=== PATIENT | female | born 1955 | race Caucasian/White ===

== ENCOUNTER 2017-10-30 10:51 | Emergency (ER) | payer OTHER ==
[~2017-10-30] VITALS: Ht 170.2 cm; Wt 54.4 kg
[~2017-10-30 10:51] MED LIST: BUPR150ER; POTCHL10ER
[2017-10-30 12:06] LABS: BASOPHILS ABSOLUTE AUTO 0.07 K/mm3 (0.00-0.23); BASOPHILS PERCENT AUTO 1 % (0-2); EOSINOPHILS PERCENT AUTO 0 % (0-6); Hematocrit 40.4 % (33.0-51.0); Hemoglobin 13.5 g/dL (11.5-16.0); IMMATURE GRAN ABSOLUTE AUTO 0.06 K/mm3 (0.00-0.10); IMMATURE GRAN PERCENT AUTO 1 % (0-1); LYMPHOCYTES ABSOLUTE AUTO 0.85 K/mm3 (0.84-5.20); LYMPHOCYTES PERCENT AUTO 7 % (21-46); MONOCYTES ABSOLUTE AUTO 0.98 K/mm3 (0.16-1.47); MONOCYTES PERCENT AUTO 8 % (4-13); Mean Corpuscular HGB 28.4 pg (26.0-34.0); Mean Corpuscular HGB Conc 33.4 g/dL (31.5-36.5); Mean Corpuscular Volume 85 fL (80-100); Mean Platelet Volume 9.1 fL (9.1-12.4); NEUTROPHILS ABSOLUTE AUTO 9.94 K/mm3 (1.96-9.15); NEUTROPHILS PERCENT AUTO 84 % (41-73); Platelet Count 165 K/mm3 (150-400); RDW Coefficient Variation 14.6 % (11.7-14.2); RDW Standard Deviation 45.3 fL (35.1-46.3); Red Blood Cell Count 4.75 M/mm3 (3.80-5.20)
[2017-10-30] MEDS ORDERED: MILK THISTLE140 MG PO (12:10)
[2017-10-30 12:23] LABS: Alanine Aminotransfer (ALT/SGP 21 U/L (12-78); Albumin, Blood 3.5 g/dL (3.4-5.0); Albumin/Globulin Ratio 0.7 (0.8-1.8); Alk Phos 205 U/L (50-136); Anion Gap 9 mmol/L (6-16); Aspartate Aminotrans (AST/SGOT 36 U/L (12-37); Bilirubin, Total 1.2 mg/dL (0.1-1.0); Blood Urea Nitrogen 10 mg/dL (8-24); Bun/Creatinine Ratio 20.5 (12.0-20.0); CO2, Blood 19 mmol/L (21-32); Calcium, Blood 9.2 mg/dL (8.5-10.1); Chloride, Blood 99 mmol/L (98-108); Creatinine, Blood 0.49 mg/dL (0.40-1.00); Globulin, Blood 4.9 g/dL (2.2-4.0); Glomerular Filtration Rate >60 (60-); Glucose, Blood 87 mg/dL (70-99); Potassium, Blood 4.3 mmol/L (3.5-5.5); Sodium, Blood 127 mmol/L (136-145); Total Protein, Blood 8.4 g/dL (6.4-8.2)
[2017-10-30 12:27] LABS: International Normalized Ratio 1.21; Prothrombin Time Results 12.7 Sec (9.7-11.5)
[2017-10-30 12:53] LABS: Influenza A Negative (NEGATIVE); Influenza B Negative (NEGATIVE)
[2017-10-30 14:18] LABS: Source, Urine Clean Catch
[2017-10-30 14:24] LABS: Appearance, Urine Hazy (Clear); Bilirubin, Urine Neg (Neg); Blood, Urine 4+ (Neg); Color, Urine Yellow (P-Yellow); Glucose Qualitative, Urine Neg (Neg); Ketones, Urine 1+ (Neg); Leukocyte Esterase, Urine 1+ (Neg); Nitrite, Urine Pos (Neg); Protein, Urine 2+ (Neg); Urobilinogen, Urine NORM (Normal)
[2017-10-30] MEDS ORDERED: LEVO750 PO (14:25)
[2017-10-30 14:32] LABS: Bacteria Many /hpf; Squamous Epithelial Cells Few /hpf (Few)
[2017-10-31] MEDS ORDERED: Prednisone50 MG PO (19:18)
== END 2017-10-30 14:51 | disposition home or self-care (01) ==
LOC: ER 10:51
PROVIDERS: Nurse Practitioner Family
DX: J18.9 Pneumonia, unspecified organism (principal); F32.9 Major depressive disorder, single episode, unspecified; F17.200 Nicotine dependence, unspecified, uncomplicated; Z79.899 Other long term (current) drug therapy
CPT/HCPCS: 36415; 71046; 80053; 81001; 85025; 85610; 87077; 87086; 87186; 87804; 93005; 93010; 96361; 96374; 99283; J1885; J7030

== ENCOUNTER 2017-10-31 17:50 | Emergency (ER) | payer OTHER ==
[~2017-10-31] VITALS: Ht 172.7 cm; Wt 54.4 kg
[~2017-10-31 17:50] MED LIST changes: +LEVO750 PO; +MILK THISTLE140 MG PO
[2017-10-31 18:35] LABS: BASOPHILS ABSOLUTE AUTO 0.03 K/mm3 (0.00-0.23); BASOPHILS PERCENT AUTO 0 % (0-2); EOSINOPHILS ABSOLUTE AUTO 0.12 K/mm3 (0.00-0.68); EOSINOPHILS PERCENT AUTO 1 % (0-6); Hematocrit 37.1 % (33.0-51.0); Hemoglobin 12.5 g/dL (11.5-16.0); IMMATURE GRAN ABSOLUTE AUTO 0.07 K/mm3 (0.00-0.10); IMMATURE GRAN PERCENT AUTO 1 % (0-1); LYMPHOCYTES ABSOLUTE AUTO 1.27 K/mm3 (0.84-5.20); LYMPHOCYTES PERCENT AUTO 12 % (21-46); MONOCYTES PERCENT AUTO 7 % (4-13); Mean Corpuscular HGB Conc 33.7 g/dL (31.5-36.5); Mean Corpuscular Volume 83 fL (80-100); Mean Platelet Volume 9.4 fL (9.1-12.4); NEUTROPHILS ABSOLUTE AUTO 8.53 K/mm3 (1.96-9.15); NEUTROPHILS PERCENT AUTO 80 % (41-73); Platelet Count 138 K/mm3 (150-400); RDW Coefficient Variation 14.3 % (11.7-14.2); RDW Standard Deviation 43.2 fL (35.1-46.3); Red Blood Cell Count 4.47 M/mm3 (3.80-5.20); White Blood Cell Count 10.72 K/mm3 (4.00-11.30)
[2017-10-31 18:51] LABS: Alanine Aminotransfer (ALT/SGP 27 U/L (12-78); Albumin, Blood 3.3 g/dL (3.4-5.0); Albumin/Globulin Ratio 0.8 (0.8-1.8); Alk Phos 240 U/L (50-136); Anion Gap 9 mmol/L (6-16); Aspartate Aminotrans (AST/SGOT 55 U/L (12-37); Bilirubin, Total 0.8 mg/dL (0.1-1.0); Blood Urea Nitrogen 12 mg/dL (8-24); Bun/Creatinine Ratio 27.5 (12.0-20.0); CO2, Blood 21 mmol/L (21-32); Chloride, Blood 97 mmol/L (98-108); Creatinine, Blood 0.44 mg/dL (0.40-1.00); Globulin, Blood 4.2 g/dL (2.2-4.0); Glomerular Filtration Rate >60 (60-); Glucose, Blood 82 mg/dL (70-99); Potassium, Blood 3.7 mmol/L (3.5-5.5); Sodium, Blood 127 mmol/L (136-145); Total Protein, Blood 7.5 g/dL (6.4-8.2); Troponin I <0.015 ng/mL (0.000-0.040)
[2017-10-31] MEDS ORDERED: Prednisone50 MG PO (19:18)
== END 2017-10-31 20:17 | disposition home or self-care (01) ==
LOC: ER 17:50
PROVIDERS: Emergency Medicine
DX: J44.0 Chronic obstructive pulmonary disease with (acute) lower respiratory infection (principal); J18.9 Pneumonia, unspecified organism; E86.0 Dehydration; Z79.899 Other long term (current) drug therapy; Z79.52 Long term (current) use of systemic steroids; Z79.2 Long term (current) use of antibiotics; F17.200 Nicotine dependence, unspecified, uncomplicated
CPT/HCPCS: 71045; 80053; 83880; 84484; 85025; 93005; 93010; 96374; 99283; J1100

== ENCOUNTER 2017-11-29 14:29 | Day surgery (SDC) | payer OTHER ==
[~2017-11-29 14:29] MED LIST changes: +Prednisone50 MG PO
== END 2017-11-29 22:45 | disposition home or self-care (01) ==
LOC: US 14:29
DX: K70.31 Alcoholic cirrhosis of liver with ascites (principal)
CPT/HCPCS: 76705

== ENCOUNTER 2018-01-08 06:25 | Day surgery (SDC) | payer OTHER ==
[~2018-01-08] VITALS: Ht 170.2 cm; Wt 56.2 kg
== END 2018-01-08 08:42 | disposition home or self-care (01) ==
LOC: ORSCSDS 06:25
PROVIDERS: Internal Medicine Gastroenterology
PROC: 0DB68ZX Excision of Stomach, Via Natural or Artificial Opening Endoscopic, Diagnostic (ICD-10-PCS; principal; 2018-01-08 07:45)
DX: K74.60 Unspecified cirrhosis of liver (principal); R14.0 Abdominal distension (gaseous); R18.8 Other ascites; K31.9 Disease of stomach and duodenum, unspecified; K29.70 Gastritis, unspecified, without bleeding; F17.210 Nicotine dependence, cigarettes, uncomplicated; Z79.899 Other long term (current) drug therapy
CPT/HCPCS: 88305; 88342; J0330; J1980; J2405; J7120

== ENCOUNTER → 2019-05-26 | Outpatient (CLI) | payer OTHER | END | disposition home or self-care (01) | LOC: LAB SHORT 07:37 → PLD 07:37 | DX: L30.8 Other specified dermatitis (principal); L98.9 Disorder of the skin and subcutaneous tissue, unspecified | CPT/HCPCS: 88305; 88312; 88313 ==

== ENCOUNTER 2019-09-09 11:35 | Day surgery (SDC) | payer OTHER ==
[2019-09-09] MEDS ORDERED: THERA1 EACH (12:10)
== END 2019-09-09 13:35 | disposition home or self-care (01) ==
LOC: ORSCSDS 11:35
PROVIDERS: Internal Medicine Gastroenterology
PROC: 0DBK8ZX Excision of Ascending Colon, Via Natural or Artificial Opening Endoscopic, Diagnostic (ICD-10-PCS; principal; 2019-09-09 13:00)
DX: Z12.11 Encounter for screening for malignant neoplasm of colon (principal); K57.30 Diverticulosis of large intestine without perforation or abscess without bleeding; J43.9 Emphysema, unspecified; K70.31 Alcoholic cirrhosis of liver with ascites; F17.210 Nicotine dependence, cigarettes, uncomplicated; Z79.899 Other long term (current) drug therapy
CPT/HCPCS: 88305; J2704; J7120

== ENCOUNTER → 2019-09-16 | Outpatient (CLI) | payer OTHER ==
[~2019-09-16] MED LIST changes: +THERA1 EACH
== END | disposition home or self-care (01) ==
LOC: PLD 12:38 → LAB SHORT 12:38
DX: L30.8 Other specified dermatitis (principal)
CPT/HCPCS: 88305; 88312; 88313

== ENCOUNTER → 2019-12-12 | Outpatient (CLI) | payer OTHER ==
[2019-12-17 08:10] LABS: COTININE <10.0 ng/mL (.); NICOTINE <10.0 ng/mL (.)
== END | disposition home or self-care (01) ==
LOC: LAB 11:35 → LAB SHORT 11:35
PROVIDERS: Ophthalmology
DX: H25.11 Age-related nuclear cataract, right eye (principal)
CPT/HCPCS: G0480

== ENCOUNTER → 2020-08-10 | Outpatient (CLI) | payer OTHER ==
[2020-08-10 09:41] LABS: Source, Urine Clean Catch
[2020-08-10 12:17] LABS: Appearance, Urine Clear (Clear); Bilirubin, Urine Neg (Neg); Blood, Urine 1+ (Neg); Color, Urine Yellow (P-Yellow); Glucose Qualitative, Urine Neg (Neg); Ketones, Urine Neg (Neg); Leukocyte Esterase, Urine Neg (Neg); Nitrite, Urine Neg (Neg); Protein, Urine Neg (Neg); Urobilinogen, Urine NORM (Normal)
[2020-08-10 12:41] LABS: White Blood Cells, Urine Not Seen /hpf (0-5)
[2020-08-10 12:42] LABS: Bacteria Rare /hpf; Red Blood Cells, Urine 0-2 /hpf (0-2); Squamous Epithelial Cells Not Seen /hpf (Few)
== END | disposition home or self-care (01) ==
LOC: LAB UCHC 09:36 → LAB SHORT 09:36
PROVIDERS: Internal Medicine
DX: E87.1 Hypo-osmolality and hyponatremia (principal)
CPT/HCPCS: 81001

== ENCOUNTER 2021-04-14 09:38 | Day surgery (SDC) | payer OTHER ==
[~2021-04-14] VITALS: Ht 170.2 cm; Wt 52.4 kg
[2021-04-14] MEDS ORDERED: Lisinopril2.5 MG (09:52)
--- NOTE | 2021-04-14 09:59 | NUR ---
04/14/21 0959 Rosalind Schmid 1 TRY RIGHT HAND VALVE
== END 2021-04-14 11:24 | disposition home or self-care (01) ==
LOC: ORSCSDS 09:38
PROVIDERS: Student in an Organized Health Care Education/Training Program
PROC: 0DB68ZX Excision of Stomach, Via Natural or Artificial Opening Endoscopic, Diagnostic (ICD-10-PCS; principal; 2021-04-14 11:00)
PROC: 0DB98ZX Excision of Duodenum, Via Natural or Artificial Opening Endoscopic, Diagnostic (ICD-10-PCS; principal; 2021-04-14 11:00)
DX: K74.60 Unspecified cirrhosis of liver (principal); Z13.810 Encounter for screening for upper gastrointestinal disorder; K31.7 Polyp of stomach and duodenum; I10 Essential (primary) hypertension; E78.5 Hyperlipidemia, unspecified; F17.210 Nicotine dependence, cigarettes, uncomplicated; Z79.899 Other long term (current) drug therapy
CPT/HCPCS: 88305; J2704; J7120

== ENCOUNTER 2022-02-20 18:31 | Inpatient (IN) | payer MEDICARE, OTHER ==
[~2022-02-20] VITALS: Ht 170.2 cm; Wt 52.7 kg
[~2022-02-20 18:31] MED LIST changes: +Lisinopril2.5 MG
[2022-02-20] MEDS ORDERED: AMLODIPINE BESYL5 MG PO (19:23)
[2022-02-20] MEDS ORDERED: Zestril30 MG PO (19:23)
[2022-02-20 21:54] LABS: Base Excess Venous 3.9 mmol/L; Bicarbonate Venous 25.9 mmol/L (24.0-30.0); PCO2 Venous 47.4 mmHg (38-42); pH Blood Venous 7.39 (7.34-7.37)
[2022-02-21 00:05] LABS: Hematocrit 38.9 % (33.0-51.0); Hemoglobin 13.9 g/dL (11.5-16.0); Mean Corpuscular HGB 31.8 pg (26.0-34.0); Mean Corpuscular HGB Conc 35.7 g/dL (31.5-36.5); Mean Corpuscular Volume 89 fL (80-100); Mean Platelet Volume 9.3 fL (9.1-12.4); Platelet Count 167 K/mm3 (150-400); RDW Coefficient Variation 12.3 % (11.7-14.2); RDW Standard Deviation 40.8 fL (35.1-46.3); Red Blood Cell Count 4.37 M/mm3 (3.80-5.20); White Blood Cell Count 10.35 K/mm3 (4.00-11.30)
[2022-02-21 00:43] LABS: Albumin/Globulin Ratio 0.8 (0.8-1.8); Bilirubin, Total 0.7 mg/dL (0.1-1.0); Bun/Creatinine Ratio 28.9 (12.0-20.0); Calcium, Blood 8.7 mg/dL (8.5-10.1); Creatinine, Blood 0.42 mg/dL (0.40-1.00); Potassium, Blood 3.3 mmol/L (3.5-5.5)
--- NOTE | 2022-02-21 04:43 | NUR ---
SUMMARY PT ARRIVED TO ROOM IN NO DISTRESS. PT ON 2 LPM O2 VIA NC. PT DOES GET SOB WITH EXTERTION. PT HAD NO OTHER ISSUES NOTED. PT HAS BEEN SLEEPING WELL. PT CURRENTLY SLEEPING AND BREATHING EASY. CALL LIGHT IN REACH.
[2022-02-21 08:17] LABS: BASOPHILS ABSOLUTE AUTO 0.02 K/mm3 (0.00-0.23); BASOPHILS PERCENT AUTO 0 % (0-2); EOSINOPHILS PERCENT AUTO 0 % (0-6); Hematocrit 39.2 % (33.0-51.0); Hemoglobin 13.8 g/dL (11.5-16.0); IMMATURE GRAN ABSOLUTE AUTO 0.15 K/mm3 (0.00-0.10); IMMATURE GRAN PERCENT AUTO 2 % (0-1); LYMPHOCYTES ABSOLUTE AUTO 0.77 K/mm3 (0.84-5.20); LYMPHOCYTES PERCENT AUTO 8 % (21-46); MONOCYTES ABSOLUTE AUTO 0.47 K/mm3 (0.16-1.47); MONOCYTES PERCENT AUTO 5 % (4-13); Mean Corpuscular HGB 31.7 pg (26.0-34.0); Mean Corpuscular HGB Conc 35.2 g/dL (31.5-36.5); Mean Corpuscular Volume 90 fL (80-100); Mean Platelet Volume 9.6 fL (9.1-12.4); NEUTROPHILS ABSOLUTE AUTO 8.44 K/mm3 (1.96-9.15); NEUTROPHILS PERCENT AUTO 86 % (41-73); Platelet Count 193 K/mm3 (150-400); RDW Coefficient Variation 12.5 % (11.7-14.2); RDW Standard Deviation 41.4 fL (35.1-46.3); Red Blood Cell Count 4.35 M/mm3 (3.80-5.20); White Blood Cell Count 9.85 K/mm3 (4.00-11.30)
[2022-02-21 08:31] LABS: Albumin, Blood 2.8 g/dL (3.4-5.0); Anion Gap 7 mmol/L (6-16); Blood Urea Nitrogen 10 mg/dL (8-24); Bun/Creatinine Ratio 24.9 (12.0-20.0); CO2, Blood 26 mmol/L (21-32); Chloride, Blood 98 mmol/L (98-108); Glomerular Filtration Rate 110 (60-); Glucose, Blood 200 mg/dL (70-99); Magnesium, Blood 2.1 mg/dL (1.6-2.4); Phosphorus, Blood 3.3 mg/dL (2.5-4.9); Sodium, Blood 131 mmol/L (136-145)
--- NOTE | 2022-02-21 17:58 | NUR ---
SHIFT SUMMARY; NO ACUTE CHANGES IN CONDITION ARE NOTED FOR THIS PATIENT TODAY. SHE REMAINS ON BEDREST UNLESS AMBULATING TO AND FROM THE BATHROOM. SH USES HER CALL LIGHT APPROPRATELY TO MAKE HER NEEDS KNOWN. PATIENT HAS A PLEASANT AFFECT THROUGHOUT THE DAY. HE VITAL SIGNS ARE WITHIN NORMAL LIMITS.\ PATIENT IS ON DAY 2 OF HER REMDISVIR IV. SHE REMAINS ON 2 LITERS BY NASAL CANNULA TO KEEP SATS ABOVE 92%
--- NOTE | 2022-02-22 04:01 | NUR ---
SHIFT SUMMARY A/OX4, IND IN ROOM. CALLS APPROPRIATELY. DENIES PAIN. CURRENTLY ON 2L 02 VIA LA. DYSPNEA ON EXERTION. CIWA PER PROTOCOL. VSS, NO ACUTE CHANGES AT THIS TIME. BED IN LOWEST POSITION WITH CALL LIGHT IN REACH. WILL CONTINUE TO MONITOR AND REPORT TO ONCOMING RN.
[2022-02-22 05:17] LABS: BASOPHILS ABSOLUTE AUTO 0.05 K/mm3 (0.00-0.23); BASOPHILS PERCENT AUTO 0 % (0-2); EOSINOPHILS ABSOLUTE AUTO 0.04 K/mm3 (0.00-0.68); EOSINOPHILS PERCENT AUTO 0 % (0-6); Hematocrit 40.3 % (33.0-51.0); Hemoglobin 14.2 g/dL (11.5-16.0); IMMATURE GRAN PERCENT AUTO 1 % (0-1); LYMPHOCYTES ABSOLUTE AUTO 1.15 K/mm3 (0.84-5.20); LYMPHOCYTES PERCENT AUTO 8 % (21-46); MONOCYTES ABSOLUTE AUTO 0.93 K/mm3 (0.16-1.47); MONOCYTES PERCENT AUTO 7 % (4-13); Mean Corpuscular HGB Conc 35.2 g/dL (31.5-36.5); Mean Corpuscular Volume 91 fL (80-100); Mean Platelet Volume 9.5 fL (9.1-12.4); NEUTROPHILS ABSOLUTE AUTO 11.78 K/mm3 (1.96-9.15); NEUTROPHILS PERCENT AUTO 83 % (41-73); Platelet Count 274 K/mm3 (150-400); RDW Coefficient Variation 12.5 % (11.7-14.2); RDW Standard Deviation 41.8 fL (35.1-46.3); Red Blood Cell Count 4.44 M/mm3 (3.80-5.20); White Blood Cell Count 14.15 K/mm3 (4.00-11.30)
[2022-02-22 05:50] LABS: Bun/Creatinine Ratio 40.4 (12.0-20.0); Calcium, Blood 9.2 mg/dL (8.5-10.1); Creatinine, Blood 0.37 mg/dL (0.40-1.00); Potassium, Blood 3.7 mmol/L (3.5-5.5)
--- NOTE | 2022-02-22 15:48 | NUR ---
SHIFT SUMMARY PATIENT IS ALERT AND ORIENTED X4. PATIENT HAS BEEN IND IN ROOM ALL SHIFT. PATIENT IS COVID POSITIVE. PATIENT HAS BEEN ON 2L NC ALL SHIFT. PATIENT HAS HAD NO COMPLAINTS OF NAUSEA, VOMITTING, PAIN. PATIENT REPORTED SOME SOB WITH EXERTION AFTER TAKING A SHOWER. PATIENT HAS BEEN PLEASENT AND COOPERATIVE WITH CARE. PATIENT HAS HAD NO ACUTE EVENTS THIS SHIFT. VITAL SIGNS REVIEWED. BED IN LOCKED AND LOWEST POSITION. CALL LIGHT IN PLACE. WILL MONITOR UNTIL SHIFT CHANGE.
--- NOTE | 2022-02-23 06:08 | NUR ---
PT IS A/O, IND, ISOLATION FOR COVID PNEUMONIA. REMDESIVIR GIVEN, PT IS ON O2 VIA N/C. CIWA PROTOCOL NEGATIVE THIS SHIFT.
[2022-02-23 06:18] LABS: BASOPHILS ABSOLUTE AUTO 0.07 K/mm3 (0.00-0.23); BASOPHILS PERCENT AUTO 1 % (0-2); EOSINOPHILS PERCENT AUTO 0 % (0-6); Hematocrit 41.1 % (33.0-51.0); IMMATURE GRAN ABSOLUTE AUTO 0.54 K/mm3 (0.00-0.10); IMMATURE GRAN PERCENT AUTO 4 % (0-1); LYMPHOCYTES ABSOLUTE AUTO 1.16 K/mm3 (0.84-5.20); LYMPHOCYTES PERCENT AUTO 8 % (21-46); MONOCYTES ABSOLUTE AUTO 1.36 K/mm3 (0.16-1.47); MONOCYTES PERCENT AUTO 9 % (4-13); Mean Corpuscular HGB 31.3 pg (26.0-34.0); Mean Corpuscular HGB Conc 34.1 g/dL (31.5-36.5); Mean Corpuscular Volume 92 fL (80-100); NEUTROPHILS ABSOLUTE AUTO 11.43 K/mm3 (1.96-9.15); NEUTROPHILS PERCENT AUTO 79 % (41-73); Platelet Count 336 K/mm3 (150-400); RDW Coefficient Variation 12.9 % (11.7-14.2); RDW Standard Deviation 43.7 fL (35.1-46.3); Red Blood Cell Count 4.48 M/mm3 (3.80-5.20); White Blood Cell Count 14.56 K/mm3 (4.00-11.30)
[2022-02-23 06:43] LABS: Bun/Creatinine Ratio 38.9 (12.0-20.0); Calcium, Blood 8.7 mg/dL (8.5-10.1); Creatinine, Blood 0.44 mg/dL (0.40-1.00); Potassium, Blood 4.1 mmol/L (3.5-5.5)
--- NOTE | 2022-02-23 15:44 | NUR ---
SHIFT SUMMARY PATIENT IS ALERT AND ORIENTED X4. PATIENT HAS BEEN PLEASENT AND COOPERATIVE WITH CARE. PATIENT HAS HAD NO ACUTE EVENTS THIS SHIFT. PATIENT HAS NOT COMPLAINED OF PAIN, NAUSEA, VOMITTING, OR SOB THIS SHIFT. PATIENT HAS BEEN INDEPENDENT IN THE ROOM. BED IN LOCKED AND LOWEST POSITION. CALL LIGHT IN PLACE. WILL MONITOR UNTIL SHIFT CHANGE.
--- NOTE | 2022-02-24 06:02 | NUR ---
PT IS IND IN ROOM, HOPEFUL TO GO HOME SOON. NO CIWA WITHDRAWAL SYMPTOMS. REMDESIVIR GIVEN THIS SHIFT.
[2022-02-24] MEDS ORDERED: MELATONIN5 M1 PO (14:26)
[2022-02-24] MEDS ORDERED: BENZ100A PO (14:27)
--- NOTE | 2022-02-24 17:09 | NUR ---
PATIENT IS ALERT AND ORIENTED. PATIENT IS IND IN ROOM. PATIENT HAS BEEN TITRATED DOWN TO ROOM AIR. PATIENT IS BEING DISCHARGED HOME AROUND 6 WHEN DAUGHTER ARRIVES TO DRIVE PATIENT HOME. NO ACUTE EVENTS THIS SHIFT. VITAL SIGNS REVIEWED. BED IN LOCKED AND LOWEST POSITION. CALL LIGHT IN PLACE. WILL MONITOR UNTIL DISCHARGE.
--- NOTE | 2022-02-24 19:13 | NUR ---
DISCHARGE SUMMARY PATIENT IS ALERT AND ORIENTED. SEE PRIOR NOTE. PATIENT WAS READ DISCHARGE INSTRUCTIONS. PATIENT WAS WHEELED OUT BY PATIENTS DAUGHTER HOME. NO ACUTE EVENTS THIS SHIFT.
== END 2022-02-24 18:52 | disposition home or self-care (01) | DRG 177 ==
LOC: ER 18:31 → MEDS 02-21 00:12
PROVIDERS: Family Medicine; Internal Medicine; Student in an Organized Health Care Education/Training Program; ADMIT Internal Medicine
PROC: 8E0ZXY6 Isolation (ICD-10-PCS; principal; 2022-02-21)
DX: U07.1 COVID-19 (principal); J12.82 Pneumonia due to coronavirus disease 2019; J96.01 Acute respiratory failure with hypoxia; E87.1 Hypo-osmolality and hyponatremia; J44.0 Chronic obstructive pulmonary disease with (acute) lower respiratory infection; I10 Essential (primary) hypertension; J44.9 Chronic obstructive pulmonary disease, unspecified; K74.60 Unspecified cirrhosis of liver; Z87.891 Personal history of nicotine dependence; Z79.899 Other long term (current) drug therapy; R73.9 Hyperglycemia, unspecified; T38.0X5A Adverse effect of glucocorticoids and synthetic analogues, initial encounter
CPT/HCPCS: 36415; 71045; 80048; 80053; 80069; 82803; 83735; 85025; 85027; 94640; 94664; 94760; 94761; 94762; 96374; 99285-25; A9270; J0248; J1650; J2930; J7050; J7512

== ENCOUNTER 2023-05-27 11:04 | Emergency (ER) | payer OTHER ==
[~2023-05-27] VITALS: Ht 170.2 cm; Wt 54.0 kg
[~2023-05-27 11:04] MED LIST changes: +AMLODIPINE BESYL5 MG PO; +BENZ100A PO; +MELATONIN5 M1 PO; +Zestril30 MG PO
[2023-05-27 11:20] VITALS: BP 120/82
[2023-05-27] MEDS ORDERED: NABU500 PO (12:01)
== END 2023-05-27 12:09 | disposition home or self-care (01) ==
LOC: ER 11:04
DX: M62.830 Muscle spasm of back (principal); F17.200 Nicotine dependence, unspecified, uncomplicated
CPT/HCPCS: 99283

== ENCOUNTER 2023-06-03 20:58 | Inpatient (IN) | payer OTHER ==
[~2023-06-03] VITALS: Ht 170.2 cm; Wt 50.4 kg
[~2023-06-03 20:58] MED LIST changes: +NABU500 PO
[2023-06-03 21:45] LABS: Hematocrit 27.4 % (33.0-51.0); Hemoglobin 9.5 g/dL (11.5-16.0); Mean Corpuscular HGB Conc 34.7 g/dL (31.5-36.5); Mean Corpuscular Volume 90 fL (80-100); Mean Platelet Volume 10.5 fL (9.1-12.4); NRBC ABSOLUTE 0.25 K/mm3 (0.00-0.02); NRBC Auto 1.8 /100 WBC (0.0-0.2); Platelet Count 227 K/mm3 (150-400); RDW Coefficient Variation 18.8 % (11.7-14.2); RDW Standard Deviation 54.8 fL (35.1-46.3); Red Blood Cell Count 3.06 M/mm3 (3.80-5.20); White Blood Cell Count 13.74 K/mm3 (4.00-11.30)
[2023-06-03 21:56] LABS: Albumin, Blood 2.8 g/dL (3.4-5.0); Albumin/Globulin Ratio 0.7 (0.8-1.8); Bilirubin, Total 4.1 mg/dL (0.1-1.0); Bun/Creatinine Ratio 25.8 (12.0-20.0); Calcium, Blood 8.8 mg/dL (8.5-10.1); Creatinine, Blood 0.58 mg/dL (0.40-1.00); Globulin, Blood 3.9 g/dL (2.2-4.0); Potassium, Blood 3.7 mmol/L (3.5-5.5); Total Protein, Blood 6.7 g/dL (6.4-8.2)
[2023-06-03 22:17] LABS: BAND PERCENT MAN 8 % (0-8); BASOPHILS ABSOLUTE MAN 0.13 K/mm3 (0.00-0.23); BASOPHILS PERCENT MAN 1 % (0-2); EOSINOPHILS ABSOLUTE MAN 0.27 K/mm3 (0.00-0.68); EOSINOPHILS PERCENT MAN 2 % (0-6); LYMPHOCYTES ABSOLUTE MAN 2.06 K/mm3 (0.84-5.20); LYMPHOCYTES PERCENT MAN 15 % (21-46); METAMYELOCYTE ABSOLUTE MAN 0.13 K/mm3 (0.00-0.00); METAMYELOCYTE PERCENT MAN 1 % (0-0); MONOCYTES ABSOLUTE MAN 1.09 K/mm3 (0.16-1.47); MONOCYTES PERCENT MAN 8 % (4-13); MYELOCYTE ABSOLUTE MAN 0.13 K/mm3 (0.00-0.00); MYELOCYTE PERCENT MAN 1 % (0-0); NEUTROPHILS ABSOLUTE MAN 9.89 K/mm3 (1.96-9.15); SEG NEUTROPHILS PERCENT MAN 64 % (41-73); TOTAL CELLS COUNTED 100
[2023-06-03 22:49] LABS: Influenza A, PCR NEGATIVE (NEGATIVE); Influenza B, PCR NEGATIVE (NEGATIVE); Resp Syncytial Virus, PCR NEGATIVE (NEGATIVE); SARS-Cov-2 (COVID-19) PCR, MMC NEGATIVE (NEGATIVE)
[2023-06-04 02:14] LABS: Anti-Xa UFH, PHA Monitoring <0.10 IU/mL; International Normalized Ratio 1.25
[2023-06-04 02:15] LABS: Albumin, Blood 2.6 g/dL (3.4-5.0); Albumin/Globulin Ratio 0.8 (0.8-1.8); Bilirubin, Direct 1.8 mg/dL (0.0-0.3); Bilirubin, Total 2.9 mg/dL (0.1-1.0); Bun/Creatinine Ratio 26.9 (12.0-20.0); Calcium, Blood 8.1 mg/dL (8.5-10.1); Creatinine, Blood 0.52 mg/dL (0.40-1.00); Globulin, Blood 3.3 g/dL (2.2-4.0); Percent Saturation 43.1 % (15.0-50.0); Potassium, Blood 3.1 mmol/L (3.5-5.5); Total Protein, Blood 5.9 g/dL (6.4-8.2)
[2023-06-04 02:25] LABS: BAND PERCENT MAN 9 % (0-8); BASOPHILS PERCENT MAN 0 % (0-2); EOSINOPHILS PERCENT MAN 12 % (0-6); LYMPHOCYTES % ATYPICAL MANUAL 1 % (0-0); LYMPHOCYTES PERCENT MAN 13 % (21-46); METAMYELOCYTE PERCENT MAN 1 % (0-0); MONOCYTES PERCENT MAN 15 % (4-13); MYELOCYTE PERCENT MAN 1 % (0-0); SEG NEUTROPHILS PERCENT MAN 48 % (41-73); TOTAL CELLS COUNTED 100
[2023-06-04 02:28] LABS: BASOPHILS ABSOLUTE AUTO 0.04 K/mm3 (0.00-0.23); BASOPHILS PERCENT AUTO 0 % (0-2); EOSINOPHILS ABSOLUTE AUTO 0.41 K/mm3 (0.00-0.68); EOSINOPHILS ABSOLUTE MAN 1.34 K/mm3 (0.00-0.68); EOSINOPHILS PERCENT AUTO 4 % (0-6); Hematocrit 23.5 % (33.0-51.0); Hemoglobin 8.3 g/dL (11.5-16.0); IMMATURE GRAN ABSOLUTE AUTO 0.63 K/mm3 (0.00-0.10); IMMATURE GRAN PERCENT AUTO 6 % (0-1); LYMPHOCYTES ABSOLUTE MAN 1.57 K/mm3 (0.84-5.20); LYMPHOCYTES PERCENT AUTO 13 % (21-46); METAMYELOCYTE ABSOLUTE MAN 0.11 K/mm3 (0.00-0.00); MONOCYTES ABSOLUTE AUTO 1.25 K/mm3 (0.16-1.47); MONOCYTES ABSOLUTE MAN 1.68 K/mm3 (0.16-1.47); MONOCYTES PERCENT AUTO 11 % (4-13); MYELOCYTE ABSOLUTE MAN 0.11 K/mm3 (0.00-0.00); Mean Corpuscular HGB 31.6 pg (26.0-34.0); Mean Corpuscular HGB Conc 35.3 g/dL (31.5-36.5); Mean Corpuscular Volume 89 fL (80-100); Mean Platelet Volume 10.3 fL (9.1-12.4); NEUTROPHILS ABSOLUTE AUTO 7.49 K/mm3 (1.96-9.15); NEUTROPHILS ABSOLUTE MAN 6.39 K/mm3 (1.96-9.15); NEUTROPHILS PERCENT AUTO 67 % (41-73); NRBC Auto 1.8 /100 WBC (0.0-0.2); Platelet Count 188 K/mm3 (150-400); RDW Coefficient Variation 18.1 % (11.7-14.2); RDW Standard Deviation 54.3 fL (35.1-46.3); RETICULOCYTE ABSOLUTE 0.2796 M/mm3 (0.0200-0.1100); RETICULOCYTE COUNT PERCENT 10.63 % (0.50-2.50); Red Blood Cell Count 2.63 M/mm3 (3.80-5.20); White Blood Cell Count 11.22 K/mm3 (4.00-11.30)
[2023-06-04 03:18] VITALS: BP 128/72
[2023-06-04] MEDS ORDERED: SPIRIVA RESPIMAT4 G3 INH (04:43)
[2023-06-04] MEDS ORDERED: OXYC5 PO (04:44)
[2023-06-04] MEDS ORDERED: HYDROCODONE-AC1 EA19 PO (04:44)
[2023-06-04] MEDS ORDERED: BACLOFEN10 M4 PO (04:45)
--- NOTE | 2023-06-04 05:52 | NUR ---
PT ARRIVED AT 0305 TO THE UNIT. PT ADMITTED FOR PE TO R LOWER LOBE. PT WAS RECENTLY DIAGNOSED WITH LUNG CANCER. PT HAS A HX OF COPD, AND HTN. PT SEEN BY RT, PT CURRENTLY ON 6L VIA NC WITH A OXYGEN SATURATION OF 94%. PT IS ON A HEPARIN DRIP. PT A&O x4, PLEASANT AND COOPERATIVE WITH CARE. PT WAS BIB DAUGHTER, PER DAUGHTER SHE FOUND PANTY LINERS IN THE GARBAGE CAN OF THE PT'S BATHROOM. HGB VALUE WAS 8.3 AND HCT WAS 23.5 FROM THIS MORNINGS LAB DRAW. PT DENIED CHEST PAIN, SOB, DELANEY. FOR PAIN MANAGEMENT FOR CHRONIC BACK PAIN PT TAKES 10MG OF OXYCODONE, WHICH IS AVAILABLE A PRN. 0600: PT RESTING, APPEARS TO BE COMFORTABLE IN BED. CALL LIGHT WITHIN REACH, WCTM.
[2023-06-04 07:46] VITALS: BP 117/72
[2023-06-04 11:30] LABS: Hematocrit 25.2 % (33.0-51.0); Hemoglobin 8.6 g/dL (11.5-16.0)
[2023-06-04 14:29] VITALS: BP 125/78
[2023-06-04 15:09] LABS: Stool Occult Blood Guaiac 1 Neg (Neg)
[2023-06-04 16:40] LABS: Hemoglobin 8.8 g/dL (11.5-16.0)
--- NOTE | 2023-06-04 19:29 | NUR ---
SHIFT SUMMARY: PT A&O X4. PT PLEASANT AND COOPERATIVE WITH ALL CARE. PT REMAINS ON 9L SATING BETWEEN 88-92%. OCCULT SAMPLE SENT THIS SHIFT SHOWING NEGATIVE. HEPARIN INFUSING @17U/KG/HR. PT HAD 10/10 PAIN IN LOWER BACK THIS SHIFT. PAIN MEDICATION CHANGED TO Q6 SCHEDULED W/PRN TYLENOL IN BETWEEN. HEAT PACK PROVIDED FOR PT. DAUGHTERS WOULD LIKE TO BE CALLED WHEN HOSPITALIST ARRIVES IN AM TO ADDRESS SURGICAL CONCERNS AND D/C PLANS. SB ASSIST TO BSC. CALL LIGHT IN REACH. BED IN LOWEST POSITION. REPORT GIVEN TO ONCOMING RN.
[2023-06-04 20:19] VITALS: BP 122/74
[2023-06-04 23:00] LABS: Hematocrit 22.1 % (33.0-51.0); Hemoglobin 7.7 g/dL (11.5-16.0)
[2023-06-05 03:50] VITALS: BP 115/72
[2023-06-05 04:32] LABS: Hematocrit 22.6 % (33.0-51.0); Hemoglobin 7.7 g/dL (11.5-16.0)
[2023-06-05 05:08] LABS: Albumin, Blood 2.5 g/dL (3.4-5.0); Albumin/Globulin Ratio 0.8 (0.8-1.8); Bilirubin, Total 2.7 mg/dL (0.1-1.0); Bun/Creatinine Ratio 27.6 (12.0-20.0); Calcium, Blood 8.1 mg/dL (8.5-10.1); Creatinine, Blood 0.47 mg/dL (0.40-1.00); Globulin, Blood 3.3 g/dL (2.2-4.0); Total Protein, Blood 5.8 g/dL (6.4-8.2)
--- NOTE | 2023-06-05 06:07 | NUR ---
SHIFT SUMMARY: C/O 06/19 PAIN IN BACK, BUT PAIN MEDICATIONS NOT YET DUE; CALLED , RECEIVED TELEPHONE ORDER FOR FENTANYL FOR BREAKTHROUGH PAIN, WHICH HELPED UNTIL ABLE TO GIVE 0600 OXYCODONE. HEPARIN INFUSING AT 18 UNITS/KG/HR (19.1 ML/HR, WEIGHT 53 KG). OXYGEN TITRATED DOWN TO 8 L/MIN HI FLOW NC WITH O2 SAT 94-95%. GETTING UP TO BSC WITH SBA. LBM YESTERDAY, BUT MAY NEED BOWEL MEDS GOING FORWARD.
[2023-06-05 07:36] VITALS: BP 118/72
[2023-06-05 10:17] LABS: Hematocrit 23.1 % (33.0-51.0)
--- NOTE | 2023-06-05 14:58 | NUR ---
FAILED O2 TITRATION ATTEMPT TO TITRATE O2 FROM 8L O2 VIA HIGH FLOW NC TO 5L WAS MADE THIS AM. PT DID NOT TOLERATE THIS WELL. INCREASED COMPLAINTS OF SOB AND DESATING INTO THE LOW 80S. PT TOOK 15-20 MINUTES TO RECOVER AFTER DESATING WITH EXERTION USED WHEN USING THE BSC. PT NOW ON 7-8L O2 WHILE AT REST. O2 INCREASED TO 10L WITH EXERTION. PT APPEARS MORE COMFORTABLE AND IN LESS DISTRESS THIS AFTERNOON ON HIGHER LEVELS OF O2.
[2023-06-05 16:08] LABS: Hematocrit 23.6 % (33.0-51.0); Hemoglobin 8.1 g/dL (11.5-16.0)
--- NOTE | 2023-06-05 17:52 | NUR ---
SHIFT SUMMARY PT REQUIRING 7L O2 VIA HIGH FLOW NC WHILE AT REST. REQUIRES 10L WHEN USING THE BSC AND WITH MEALS. PT GETS VERY ANXIOUS WHEN RECOVERING FROM EXERTION OR DESATURATION RELATED TO EXERTION. VISITED BY HER SON TODAY, WHICH APPEARED TO HELPED HER ANXIETY. PT GIVEN COLACE TODAY WITH GOOD EFFECT AND SEVERAL BMS. URINE CONTINUES TO BE FOUR SMELLING/STRONG, BUT COLOR HAS IMPROVED TO A YELLOW RATHER THAN ORANGE. BACK PAIN CONTINUES TO BE A PROBLEM. SEE EMAR FOR PAIN YEAST CULTURE DEVELOPER. BREAKTHROUGH FENTANYL GIVEN ONCE SO FAR THIS SHIFT. DIETITIAN MET WITH PATIENT TODAY. NO OTHER ACUTE CHANGES IN ASSESSMENT AT THIS TIME. VS REVEWIED. PT SITTING UPRIGHT IN BED, EATING DINNER.
[2023-06-05 18:08] VITALS: BP 137/82
[2023-06-05 20:29] VITALS: BP 124/74
[2023-06-06 04:01] VITALS: BP 138/77
[2023-06-06 05:45] LABS: Hemoglobin 8.6 g/dL (11.5-16.0)
[2023-06-06 06:06] LABS: Albumin/Globulin Ratio 0.8 (0.8-1.8); Bilirubin, Total 3.9 mg/dL (0.1-1.0); Bun/Creatinine Ratio 20.4 (12.0-20.0); Calcium, Blood 9.1 mg/dL (8.5-10.1); Creatinine, Blood 0.49 mg/dL (0.40-1.00); Globulin, Blood 3.9 g/dL (2.2-4.0); Potassium, Blood 3.4 mmol/L (3.5-5.5); Total Protein, Blood 6.9 g/dL (6.4-8.2)
--- NOTE | 2023-06-06 07:20 | NUR ---
SHIFT SUMMARY PT IS ALERT AND ORIENTED TO PERSON, PLACE, SITUATION AND TIME. PT DENIES CHEST PAIN/PRESSURE/TIGHTNESS AT THIS TIME. PAIN ASSESSED AND MEDICATED PER EMAR- SCHEDULED MEDS DO NOT SEEM TO COVER THE PATIENTS PAIN NEEDS. PALLIATIVE CONSULT IN FOR POSSIBLE FURTHER PAIN MANAGEMENT. PT RESPONDS WELL TO THERAPUETIC TOUCH-HELPS TO EASE HER. PT IS LOOKING FORWARD TO DAUGHTER COMING IN FROM OUT OF TOWN TODAY. PT IS PLEASANT AND COOPERATIVE WITH CARE. BED IS LOCKED IN THE LOWEST POSITION WITH CALL LIGHT IN REACH.
--- NOTE | 2023-06-06 07:30 | NUR ---
ASSUMED CARE: PT RESTING IN BED, ON 7L. CALL LIGHT IN REACH. DR AT BEDSIDE. NO ACUTE NEEDS OR CONCERNS AT THIS TIME.
[2023-06-06 07:52] VITALS: BP 126/76
[2023-06-06 11:47] LABS: Hematocrit 22.7 % (33.0-51.0); Hemoglobin 7.8 g/dL (11.5-16.0)
[2023-06-06 14:51] VITALS: BP 127/72
--- NOTE | 2023-06-06 15:04 | NUR ---
Pt resting in bed upon arrival. Pt reporting 8/10 pain in her lower back and by end of visit she is reporting 6/10 pain. Daughter Misa at bedside. Offered therapeutic listening and answered questions. Reviewed plan of care. Engaged in therapeutic discussion regarding advanced care planning. Educated on disease process including trajectoryi. Daughter was not aware of diagnosis for cirrhosis. Answered questions and deferred some questions for physician to answer. Reported Pt's pain to Primary RN Mili. Palliative Care will remain available
[2023-06-06 18:31] LABS: Hematocrit 24.1 % (33.0-51.0); Hemoglobin 8.3 g/dL (11.5-16.0)
--- NOTE | 2023-06-06 19:13 | NUR ---
SHIFT SUMMARY: CONSULT FOR IR CALLED IN. DR GARDNER CAME TO SEE PT AND AWARE THAT SHE HAS REMAINED ON 7-10 L NC FOR PAST FEW DAYS WITH LITTLE PROGRESS. HEPARIN GTT RESTARTED. ECHO COMPLETED AND LABS PENDING FOR CARDIAC PANEL. PT MEDICATED FOR PAIN. STATES LOW BACK PAIN. CORY CASTELAN. DAUGHTER AT BEDSIDE.
[2023-06-06 19:23] VITALS: BP 128/79
[2023-06-07] VITALS (8 sets, daily range): BP systolic 112–127; BP diastolic 62–74
[2023-06-07 00:01] LABS: Hematocrit 22.4 % (33.0-51.0); Hemoglobin 7.6 g/dL (11.5-16.0)
--- NOTE | 2023-06-07 03:51 | NUR ---
SHIFT SUMMARY 68 YR F ADMITTED ON 06/04/23 FOR PULMONARY EMBOLISM. FULL CODE. NO ACUTE CHANGES THIS SHIFT. PER PHARMACY HEPARIN RATE WAS CHANGED AND BOLUS GIVEN. PT C/O SEVERE PAIN IN HER LOWER BACK AND IS BEING MEDICATED PER EMAR. OXYGEN REMAILNS AT 10L DUE TO DESATING W/ ANY ACTIVITY. DAUGHTER HAS STAYED AT BEDSIDE THROUGHOUT THE NIGHT AND IS A GREAT COMFORT TO PT.
[2023-06-07 05:07] LABS: Hematocrit 21.5 % (33.0-51.0); Hemoglobin 7.2 g/dL (11.5-16.0)
[2023-06-07 11:11] LABS: Hematocrit 23.7 % (33.0-51.0)
--- NOTE | 2023-06-07 12:56 | NUR ---
VERBAL FROM EMIR FOR 30MG IV TORADOL ONE TIME DOSE NOW.
--- NOTE | 2023-06-07 13:11 | NUR ---
Breif supportive visit. Pt resting in bed and reports Torodol is beneficial. Brief review of plan of care. Ended visit to allow Pt to rest. No new concerns at this time. Palliative Care will remain available
[2023-06-07 17:29] LABS: Hematocrit 20.2 % (33.0-51.0); Hemoglobin 6.9 g/dL (11.5-16.0)
--- NOTE | 2023-06-07 18:36 | NUR ---
SUMMARY- PT'S PAIN WELL CONTROLLED AFTER PAIN MEDS WERE CHANGED/ADDED ON EMAR. PT AAOX4. SBA TO BSC. PT IS ON FLOW OF 40 AND 70% FIO2 ON HEATED HIGH FLOW.
--- NOTE | 2023-06-07 18:44 | NUR ---
PT GIVEN INCENTIVE SPIROMETER.
[2023-06-08 01:10] VITALS: BP 122/76
--- NOTE | 2023-06-08 01:37 | NUR ---
PT. RECEIVED 1 UNIT OF PRBC. BLOOD STARTED AT 2200 AND ENDED AT 0110. VITAL SIGNS WERE STABLE. NS 100 ML USED A FLUSH AFTER BLOOD FINISHED INFUSING. DUE TO COMPUTER PROGRAM, BEGIN AND END TIME WERE NOT ENTERED.
[2023-06-08 02:16] LABS: Hematocrit 23.3 % (33.0-51.0); Hemoglobin 7.8 g/dL (11.5-16.0); Mean Corpuscular HGB 31.6 pg (26.0-34.0); Mean Corpuscular HGB Conc 33.5 g/dL (31.5-36.5); Mean Corpuscular Volume 94 fL (80-100); Mean Platelet Volume 10.8 fL (9.1-12.4); NRBC ABSOLUTE 1.34 K/mm3 (0.00-0.02); NRBC Auto 6.1 /100 WBC (0.0-0.2); Platelet Count 150 K/mm3 (150-400); RDW Coefficient Variation 24.7 % (11.7-14.2); RDW Standard Deviation 70.4 fL (35.1-46.3); Red Blood Cell Count 2.47 M/mm3 (3.80-5.20); White Blood Cell Count 21.86 K/mm3 (4.00-11.30)
[2023-06-08 02:27] LABS: Albumin, Blood 2.6 g/dL (3.4-5.0); Albumin/Globulin Ratio 0.8 (0.8-1.8); Bilirubin, Total 3.6 mg/dL (0.1-1.0); Bun/Creatinine Ratio 39.3 (12.0-20.0); Calcium, Blood 8.2 mg/dL (8.5-10.1); Creatinine, Blood 0.64 mg/dL (0.40-1.00); Globulin, Blood 3.4 g/dL (2.2-4.0); Potassium, Blood 4.8 mmol/L (3.5-5.5)
[2023-06-08 02:53] LABS: BAND PERCENT MAN 9 % (0-8); BASOPHILS PERCENT MAN 0 % (0-2); EOSINOPHILS ABSOLUTE MAN 0.21 K/mm3 (0.00-0.68); EOSINOPHILS PERCENT MAN 1 % (0-6); LYMPHOCYTES ABSOLUTE MAN 1.96 K/mm3 (0.84-5.20); LYMPHOCYTES PERCENT MAN 9 % (21-46); METAMYELOCYTE ABSOLUTE MAN 0.43 K/mm3 (0.00-0.00); METAMYELOCYTE PERCENT MAN 2 % (0-0); MONOCYTES ABSOLUTE MAN 1.09 K/mm3 (0.16-1.47); MONOCYTES PERCENT MAN 5 % (4-13); MYELOCYTE ABSOLUTE MAN 0.21 K/mm3 (0.00-0.00); MYELOCYTE PERCENT MAN 1 % (0-0); NEUTROPHILS ABSOLUTE MAN 17.92 K/mm3 (1.96-9.15); SEG NEUTROPHILS PERCENT MAN 73 % (41-73); TOTAL CELLS COUNTED 100
--- NOTE | 2023-06-08 04:30 | NUR ---
SHIFT SUMMARY PATIENT IS A&O X4. SHE IS EXTREMLTY DYSPENIC WITH EXERTION TO THE BSC. 40l AT 70%. PATIENT IS ON SCHEDULED PAIN MEDICATION. UP TO BS INDEPENDENTLY. H&H LAST NIGHT WAS 6.9/20.2. 1 UNIT OF PACKED RED BLOOD CELLS ORDERED AND GIVEN. HEART SOUNDS TACHYCARDIC. CONTINUE WITH PLAN OF CARE.
[2023-06-08 04:52] VITALS: BP 124/63
[2023-06-08 07:56] VITALS: BP 125/68
[2023-06-08 08:32] LABS: Hematocrit 21.7 % (33.0-51.0); Hemoglobin 7.4 g/dL (11.5-16.0)
--- NOTE | 2023-06-08 10:38 | NUR ---
DAUGHTER HELPFUL AT BEDSIDE
[2023-06-08 15:16] VITALS: BP 129/78
--- NOTE | 2023-06-08 18:06 | NUR ---
NO ACUTE CHANGES, AIRVO ON 35L 55 FIO2%, EASILY SOB, HARD TO RECOVER FROM TRANSFER TO BSC AT TIMES, URINE CONCENTRATED AND ODOROUS, TWO DAUGHTERS AT BEDSIDE, CONITNUE TO MONITOR SATS, MEDICATED WITH TORADOL AND OXY THJROUGH THE DAYS
[2023-06-08 19:49] VITALS: BP 116/75
[2023-06-09] VITALS (61 sets, daily range): BP systolic 69–158; BP diastolic 41–96
[2023-06-09 06:36] LABS: Source, Urine Voided
[2023-06-09 06:56] LABS: Appearance, Urine Hazy (Clear); Blood, Urine 3+ (Neg); Color, Urine Amber (P-Yellow); Glucose Qualitative, Urine Neg (Neg); Ketones, Urine Neg (Neg); Leukocyte Esterase, Urine 2+ (Neg); Nitrite, Urine Pos (Neg); Protein, Urine 1+ (Neg); Specific Gravity, Urine 1.015 (1.003-1.022); Urobilinogen, Urine 4+ (Normal)
[2023-06-09 07:14] LABS: Bilirubin, Urine 1+ (Neg)
[2023-06-09 07:15] LABS: Renal Epithelial Rare /hpf (0-Rare); Squamous Epithelial Cells Mod /hpf (Few); Transitional Epithelial Cells Few /hpf (0-Rare)
[2023-06-09 07:16] LABS: Bacteria Many /hpf; Mucus Light (0-Heavy)
[2023-06-09 07:17] LABS: Amorphous Light (0-Heavy)
--- NOTE | 2023-06-09 07:40 | NUR ---
CALL OUT TO DR FIELD, IN REGARDS TO PATIENTS DECLINE, WAITING FOR CALL BACK
--- NOTE | 2023-06-09 08:50 | NUR ---
INITIAL ASSESSMENT PATIENT ARRIVED TO ICU FROM MEDICAL FLOOR AT 0834. PATIENT GIVEN 1 MG PO ATIVAN FOR ANXIETY ON MEDICAL FLOOR AROUND 0800. PER RN REPORT AND DAUGHTERS, PATIENT HAS BEEN A&O X 4. AFTER ATIVAN PATIENT IS NOW DROWSY, CONFUSED AND WITH MUMBLED SPEECH. PATIENT RESPONDS TO VERBAL STIMULI. PATIENT WEAK BUT ABLE TO MOVE ALL EXTREMITIES. PATIENT AFEBRILE. FOR LAST FEW WEEKS PATIENT HAS BEEN COMPLAINING OF BACK PAIN, PER FAMILY REPORT. PATIENT ON AIRVO AT 35 L AND 68% FIO2 AT THIS TIME. PER REPORT PATIENT HAS BEEN VERY SOB WITH ACTIVITY. PATIENT HAS OCCASIONAL, NONPRODUCTIVE COUGH. PATIENT IN ST, HR IN THE LOW 100S. SBP IN THE 70S. PATIENT ON ELIQUIS. GI APPEARS WNL. PUREWICK AND ATTENDS PLACED PATIENT BECOMES DYSPNEIC WHEN GETTING UP TO COMMODE. REPORT THAT URINE FOUL SMELLING AND THAT PATIENT HAS BEEN VOIDING FREQUENTLY. SCATTERED BRUISES NOTED T/O BODY. SKIN COOL, FRAGILE, JAUNDICED/ DARKENED. BED LOW, CALL LIGHT IN REACH.
[2023-06-09 09:00] LABS: Hematocrit 20.7 % (33.0-51.0); Hemoglobin 6.7 g/dL (11.5-16.0); Mean Corpuscular HGB 31.2 pg (26.0-34.0); Mean Corpuscular HGB Conc 32.4 g/dL (31.5-36.5); Mean Corpuscular Volume 96 fL (80-100); NRBC ABSOLUTE 1.72 K/mm3 (0.00-0.02); NRBC Auto 9.7 /100 WBC (0.0-0.2); Platelet Count 114 K/mm3 (150-400); RDW Coefficient Variation 29.2 % (11.7-14.2); RDW Standard Deviation 86.3 fL (35.1-46.3); Red Blood Cell Count 2.15 M/mm3 (3.80-5.20); White Blood Cell Count 17.71 K/mm3 (4.00-11.30)
[2023-06-09 09:05] LABS: Base Excess Venous -0.2 mmol/L; PCO2 Venous 41.4 mmHg (38-42); pH Blood Venous 7.39 (7.34-7.37)
--- NOTE | 2023-06-09 10:17 | NUR ---
0831 PATIENT TRANSFERRED TO ICU VIA BED, RN AND RT TRASNFERRED PATIENT, REPORT TO ALIDA MARION
--- NOTE | 2023-06-09 12:20 | NUR ---
PATIENT AFEBRILE. HR IN THE LOW 100S. SBP IN THE 90S. PATIENT GIVEN PRN ATIVAN AND DILAUDID FOR COMPLAINTS OF ANXIETY AND PAIN. DAUGHTERS AT BEDSIDE.
[2023-06-09 14:10] LABS: Hematocrit 24.3 % (33.0-51.0); Hemoglobin 7.9 g/dL (11.5-16.0)
--- NOTE | 2023-06-09 16:00 | NUR ---
PATIENT AFEBRILE. PATIENT MORE AWAKE AND ORIENTED ATIVAN WEARING OFF. PATIENT ANXIOUS. HR IN THE LOW 100S. SBP IN THE LOW 100S. PATIENT ON AIRVO AT 35 L AND 58% FIO2. NO OTHER ACUTE CHANGES TO NOTE ON AT THIS TIME. CARE CONTINUES.
--- NOTE | 2023-06-09 18:36 | NUR ---
SHIFT SUMMARY PATIENT CONFUSED AFTER ATIVAN GIVEN TODAY. PATIENT IS NOW ORIENTED X 4. PATIENT ANXIOUS. ATIVAN CHANGED TO SCHEDULED BUSPAR TO TRY AND HELP ANXIETY WITHOUT CAUSING PATIENT TO BECOME DROWSY AND CONFUSED. PATIENT WEAK; REMAINS ABLE TO MOVE ALL EXTREMITIES. PATIENT HAS REMAINED AFEBRILE. PATIENT BEING GIVEN PRN DILAUDID FOR COMPLAINTS OF BACK PAIN. PATIENT SOB WITH EXERTION. PATIENT ON AIRVO AT 35 L AND 58% FIO2. PATIENT REMAINED SR TO ST, HR 90S TO LOW 100S. SBP 70S TO 120S. BP SOFT AFTER 1 MG PO ATIVAN GIVEN ON MED FLOOR. PATIENT HAD TOTAL OF 1 L LR AND JUST PLACED ON LR AT 125 X 1 L PATIENT NOT DRINKING MUCH. NO BM THIS SHIFT. PATIENT ON SOFT DIET BUT EITHER TOO DROWSY TO EAT OR DOES NOT HAVE THE APPETITE. PUREWICK AND ATTENDS REMAINS IN PLACE. URINE DARK GODWIN IN COLOR AND FOUL SMELLING. MINIMAL OUTPUT THIS SHIFT; BLADDER SCAN SHOWED 168 MLS IN BLADDER; BOTH DR. FIELD AND DR. LARA AWARE. NO CHANGES TO SKIN NOTED. PATIENT REPOSITIONED THROUGHOUT SHIFT AND ALSO SHIFTING OWN HIPS. PATIENT RECEIVED ROCEPHIN THIS SHIFT. PATIENT HAD 1 UNIT PRBCS FOR HEMOGLOBIN OF 6.7. 1600 HEMOGLOBIN UP TO 7.9. DAUGHTERS HAVE BEEN AT BEDSIDE MOST OF THE DAY. SON ALSO HERE TO VISIT THIS AFTERNOON. BED LOW, CALL LIGHT IN REACH. REPORT WILL BE GIVEN TO ASSUMING TAFE TEACHER NURSE SHORTLY.
--- NOTE | 2023-06-09 20:33 | NUR ---
PT REQUESTS BIPAP MASK FOR SOB, OXYGEN SAT MAINTAINING >88% BUT WORK OF BREATHING NOTED. PT DAUGHTERS AT BEDSIDE. MILADY BLANCA NOTIFIED.
[2023-06-09 20:46] LABS: Hematocrit 23.9 % (33.0-51.0); Hemoglobin 7.8 g/dL (11.5-16.0)
--- NOTE | 2023-06-09 22:52 | NUR ---
PT STATED THAT SHE WAS STILL FEELING SHORT OF BREATH. RT MILADY PALOMO NOTIFIED. SPOKE TO DR LARA. NOTIFIED HIM OF PT CHANGES AND BIPAP. ORDER WAS GIVEN FOR PRECEDEX WHICH WAS STARTED AT 0.2MCG/KG/HR. PT IS ST IN THE 110S, BP WNL. OXYGEN SAT 100% AT THE CURRENT TIME. WILL TITRATE FIO2 DOWN PER DR LARA REQUEST FOR OXYGEN SAT >88%.
--- NOTE | 2023-06-09 23:23 | NUR ---
PT REFUSED ATTENDS CHANGE AND REPOSITION. DAUGHTERS AT BEDSIDE AND STATED PT WAS ADAMENT THAT SHE DID NOT WANT THAT TO BE DONE. PT/FAMILY WISHES OBSERVED.
[2023-06-10] VITALS (18 sets, daily range): BP systolic 81–158; BP diastolic 56–125
--- NOTE | 2023-06-10 01:33 | NUR ---
PT IS CONTINUING TO HAVE SEVERE AGITATION DESPITE PRECEDEX INFUSION. DR LARA WAS NOTIFIED. ORDERS WERE GIVEN FOR PRN ATIVAN AND FOR AN INCREASE ON THE MAX DOSE OF PRECEDEX. PT DAUGHTERS WERE EDUCATED ON ETOH W/DRAWAL DR LARA BELIEVES THIS TO BE A HIGHLY CONTRIBUTING FACTOR TO PT SYMPTOMS. SHE IS ST IN THE 100S, OXYGEN SAT 99% ON BIPAP. BP IS 114/79 AT THE CURRENT TIME. DAUGHTERS HAVE REMAINED AT BEDSIDE THROUGHT THE NIGHT.
[2023-06-10 03:24] LABS: Hematocrit 23.9 % (33.0-51.0); Hemoglobin 7.5 g/dL (11.5-16.0); Mean Corpuscular HGB 30.2 pg (26.0-34.0); Mean Corpuscular HGB Conc 31.4 g/dL (31.5-36.5); Mean Corpuscular Volume 96 fL (80-100); NRBC ABSOLUTE 6.19 K/mm3 (0.00-0.02); NRBC Auto 23.7 /100 WBC (0.0-0.2); Platelet Count 108 K/mm3 (150-400); RDW Coefficient Variation 33.3 % (11.7-14.2); Red Blood Cell Count 2.48 M/mm3 (3.80-5.20); White Blood Cell Count 26.08 K/mm3 (4.00-11.30)
[2023-06-10 03:40] LABS: Bilirubin, Direct 4.4 mg/dL (0.0-0.3); Bilirubin, Indirect 2.3 mg/dL (0.1-0.7); Bilirubin, Total 6.7 mg/dL (0.1-1.0); Bun/Creatinine Ratio 60.5 (12.0-20.0); Calcium, Blood 8.4 mg/dL (8.5-10.1); Creatinine, Blood 0.76 mg/dL (0.40-1.00)
[2023-06-10 04:02] LABS: Potassium, Blood 6.7 mmol/L (3.5-5.5)
--- NOTE | 2023-06-10 04:54 | NUR ---
PT HAD A CHANGE IN HEART RHYTHM, I WENT INTO THE ROOM AND FOUND THE PT TO BE AGONAL BREATHING IN PE[place]. CPR WAS STARTED AND JERRY BHAT WAS CALLED. CODE TEAM/MD ARRIVED AND PT REGAINED PULSE. MD SPOKE TO FAMILY WHO DECIDED TO MAKE PT COMFORT CARE. PT WAS PLACED ON OXYGEN FOR COMFORT AND LOST PULSE AT 0425 W/DAUGHTERS AT BEDSIDE. DR. RAMIREZ WAS PRESENT AT TIME OF AND DR LARA WAS NOTIFIED. DAUGHTERS HAD BEEN AT PT BEDSIDE THROUGHOUT THE NIGHT.
[2023-06-10 05:09] LABS: BAND PERCENT MAN 6 % (0-8); BASOPHILS PERCENT MAN 0 % (0-2); EOSINOPHILS ABSOLUTE MAN 0.26 K/mm3 (0.00-0.68); EOSINOPHILS PERCENT MAN 1 % (0-6); LYMPHOCYTES % ATYPICAL MANUAL 2 % (0-0); LYMPHOCYTES ABSOLUTE MAN 4.43 K/mm3 (0.84-5.20); LYMPHOCYTES PERCENT MAN 15 % (21-46); METAMYELOCYTE ABSOLUTE MAN 4.17 K/mm3 (0.00-0.00); METAMYELOCYTE PERCENT MAN 16 % (0-0); MONOCYTES ABSOLUTE MAN 2.34 K/mm3 (0.16-1.47); MONOCYTES PERCENT MAN 9 % (4-13); NEUTROPHILS ABSOLUTE MAN 14.86 K/mm3 (1.96-9.15); SEG NEUTROPHILS PERCENT MAN 51 % (41-73); TOTAL CELLS COUNTED 100
[2023-06-10 07:07] LABS: HBSAG SCREEN Negative (Negative); HCV AB Non Reactive (Non Reactive); HEP A AB, IGM Negative (Negative); HEP B CORE AB, TOT Negative (Negative)
[2023-06-10 12:55] LABS: Stool Occult Bld Immuno 1 Positive (NEGATIVE)
== END 2023-06-10 04:25 | DRG 175 ==
LOC: ER 20:58 → ICUE 06-04 01:01 → MEDS 06-04 01:01 → ICUE 06-09 08:31
PROVIDERS: Emergency Medicine; Family Medicine; Hospitalist; Student in an Organized Health Care Education/Training Program; ADMIT Student in an Organized Health Care Education/Training Program
PROC: 5A0935A Assistance with Respiratory Ventilation, Less than 24 Consecutive Hours, High Flow/Velocity Cannula (ICD-10-PCS; principal; 2023-06-09)
PROC: 5A12012 Performance of Cardiac Output, Single, Manual (ICD-10-PCS; 2023-06-09)
PROC: 5A09357 Assistance with Respiratory Ventilation, Less than 24 Consecutive Hours, Continuous Positive Airway Pressure (ICD-10-PCS; 2023-06-09)
PROC: 30233N1 Transfusion of Nonautologous Red Blood Cells into Peripheral Vein, Percutaneous Approach (ICD-10-PCS; 2023-06-09)
DX: I26.99 Other pulmonary embolism without acute cor pulmonale (principal); J96.01 Acute respiratory failure with hypoxia; E87.1 Hypo-osmolality and hyponatremia; D58.9 Hereditary hemolytic anemia, unspecified; N39.0 Urinary tract infection, site not specified; F10.239 Alcohol dependence with withdrawal, unspecified; J98.11 Atelectasis; R64 Cachexia; Z68.1 Body mass index [BMI] 19.9 or less, adult; C34.11 Malignant neoplasm of upper lobe, right bronchus or lung; Z66 Do not resuscitate; Z51.5 Encounter for palliative care; I46.9 Cardiac arrest, cause unspecified; K70.30 Alcoholic cirrhosis of liver without ascites; I10 Essential (primary) hypertension; M47.896 Other spondylosis, lumbar region; J43.9 Emphysema, unspecified; F17.210 Nicotine dependence, cigarettes, uncomplicated; D72.829 Elevated white blood cell count, unspecified; B96.20 Unspecified Escherichia coli [E. coli] as the cause of diseases classified elsewhere; Z20.822 Contact with and (suspected) exposure to COVID-19; Z86.16 Personal history of COVID-19; Z79.899 Other long term (current) drug therapy; Z79.891 Long term (current) use of opiate analgesic; Z79.811 Long term (current) use of aromatase inhibitors; Z87.01 Personal history of pneumonia (recurrent); Z88.8 Allergy status to other drugs, medicaments and biological substances
CPT/HCPCS: 0241U; 36415; 36430; 71045; 71260; 76705; 80048; 80053; 81001; 82247; 82248; 82272; 82274; 82728; 82803; 82977; 83010; 83540; 83550; 83615; 83880; 84484; 85014; 85018; 85025; 85027; 85045; 85060; 85379; 85520; 85610; 85730; 86704; 86708; 86803; 86850; 86880; 86900; 86901; 86923; 87077; 87086; 87186; 87340; 92950; 93005; 93010; 93306; 93308; 94640; 94660; 94664; 94762; 96374; 99285-25; A9270; G0008; J0696; J1170; J1644; J1885; J2060; J3010; J7040; J7050; J7120; P9016; Q2036; Q9967